=== PATIENT | male | born 1940 | race Caucasian/White ===

== ENCOUNTER → 2017-02-19 | Outpatient (CLI) | payer MEDICARE ==
[2017-02-19 08:30] LABS: Basophils % (A) 0 %; CH 31.4; CHCM 33.2; Eosinophils # (A) 0.1 k/uL (0-0.7); Eosinophils % (A) 2 %; HCT 49.7 % (39.0-53.0); HDW 2.14; HGB 16.3 gm/dL (13.0-17.5); Luc % (Auto) 1; Lymphocytes % (A) 13 %; MCH 31.2 pg (25.0-35.0); MCHC 32.8 g/dL (31.0-37.0); MCV 95.2 fL (80.0-100.0); Mean Platelet Volume 6.6; Monocytes # (A) 0.8 k/uL (0-1.0); Monocytes % (A) 10 %; Neutrophils # (A) 5.6 k/uL (1.3-7.7); Neutrophils % (A) 74 %; RBC 5.22 m/uL (4.30-5.90); RDW 12.9 % (11.5-15.5); WBC 7.5 k/uL (3.8-10.6); WBC (Perox) 7.74
[2017-02-19 09:27] LABS: ALT 26 U/L (21-72); AST 25 U/L (17-59); Alkaline Phosphatase 77 U/L (38-126); Anion Gap 9 mmol/L; Blood Urea Nitrogen 24 mg/dL (9-20); Calcium 8.9 mg/dL (8.4-10.2); Carbon Dioxide 28 mmol/L (22-30); Chloride 102 mmol/L (98-107); Cholesterol 147 mg/dL (<200); Glucose 80 mg/dL (74-99); Non-African American GFR(MDRD) 54 (>60 ml/min/1.73 sqM); Potassium 4.6 mmol/L (3.5-5.1); Sodium 139 mmol/L (137-145); Triglycerides 134 mg/dL (<150)
== END | disposition home or self-care (01) ==
LOC: LABWHC1 07:47
PROVIDERS: ATTEND Family Medicine
DX: G20 Parkinson's disease (principal); E55.9 Vitamin D deficiency, unspecified; R53.83 Other fatigue; R35.0 Frequency of micturition; Z13.220 Encounter for screening for lipoid disorders; Z12.5 Encounter for screening for malignant neoplasm of prostate; Z12.31 Encounter for screening mammogram for malignant neoplasm of breast
CPT/HCPCS: 80053; 82465; 84443; 84478; 85025; 82306; 36415; G0103

== ENCOUNTER → 2017-03-13 | Outpatient (CLI) | payer MEDICARE | END | disposition home or self-care (01) | LOC: LABWHC1 09:00 | PROVIDERS: ATTEND Psychiatry & Neurology Neurology | DX: R41.3 Other amnesia (principal); R53.83 Other fatigue | CPT/HCPCS: 36415; 82607; 85652; 86780 ==

== ENCOUNTER → 2017-03-17 | Outpatient (CLI) | payer MEDICARE ==
--- NOTE | 2017-03-17 10:10 | CT ---
EXAMINATION TYPE: CT brain wo con DATE OF EXAM: 03/17/2017 10:04 AM COMPARISON: NONE HISTORY: TIA, weakness, fatigue CT DLP: [address] of the brain was performed. The ventricles, basal cisterns and sulci overlying the cerebral convexities demonstrate moderate enla rgement. There is no evidence for intracranial hemorrhage or sulcal effacement. There is decreased attenuation about the periventricular white matter and deep white matter of both c erebral hemispheres, compatible with chronic small vessel ischemia. Differential diagnosis does inclu de demyelination. No mass effects are seen.No midline shift. Osseous calvarium is intact. If symptoms persist consider MRI. IMPRESSION: 1. Age related atrophic and chronic small vessel ischemic change without acute intracranial process s een at this time.
== END | disposition home or self-care (01) ==
LOC: RADCTMAIN 09:22
PROVIDERS: ATTEND Psychiatry & Neurology Neurology
DX: G31.9 Degenerative disease of nervous system, unspecified (principal); I67.82 Cerebral ischemia; Z88.0 Allergy status to penicillin
CPT/HCPCS: 70450

== ENCOUNTER 2017-03-28 13:05 | Inpatient (IN) | payer MEDICARE ==
[2017-03-28 13:34] LABS: Glucose,Whole Blood 153 mg/dL (75-99)
[2017-03-28] MEDS ORDERED: ACETAMINOPHEN TAB 500 MG TAB PO STA (13:35)
[2017-03-28] MEDS ORDERED: RX INFO: IV CONTRAST WAS GIVEN 1 EACH MISC MISCELLANE PRN (13:37)
--- NOTE | 2017-03-28 13:41 | ED ---
General Adult HPI - General Chief complaint: Neuro Symptoms/Deficit Stated complaint: Altered/Weakness Time Seen by Provider: 03/28/17 13:27 Source: patient, family, RN notes reviewed Mode of arrival: wheelchair Limitations: altered mental status, physical limitation - History of Present Illness Initial comments: Patient is a pleasant 76-year-old male presenting to the emergency department with concern for weakness. Majority of history is provided by the daughter. Patient had some mild weakness last night. This morning patient was unable to get out of bed. Patient did have a fall however no known injury. Patient does complain of some lower back pain however daughter states this is somewhat chronic. No history of fever. Daughter feels patient may be slightly more confused than normal. Patient is being evaluated for Parkinson's through primary care physician and neurologist. Patient last saw a neurologist this past week. Neurologist was made aware of back discomfort. - Related Data Home Medications Medication Instructions Recorded Confirmed Cholecalciferol [Vitamin D3] 1,000 unit PO DAILY 03/28/17 03/28/17 Cyanocobalamin [Vitamin B-12] 500 mcg PO DAILY 03/28/17 03/28/17 Rivaroxaban [Xarelto] 15 mg PO DAILY 03/28/17 03/28/17 Allergies Allergy/AdvReac Type Severity Reaction Status Date / Time Penicillins Allergy Rash/Hives Verified 03/28/17 14:22 Review of Systems ROS Statement: Those systems with pertinent positive or pertinent negative responses have been documented in the HPI. ROS Other: All systems not noted in ROS Statement are negative. Constitutional: Denies: fever Eyes: Denies: eye pain ENT: Denies: ear pain Respiratory: Denies: cough, dyspnea Cardiovascular: Denies: chest pain Endocrine: Reports: fatigue Gastrointestinal: Denies: abdominal pain Genitourinary: Denies: dysuria Musculoskeletal: Reports: back pain Skin: Denies: rash Neurological: Reports: weakness Past Medical History Past Medical History: Chest Pain / Angina, Pulmonary Embolus (PE) History of Any Multi-Drug Resistant Organisms: None Reported Past Surgical History: Pacemaker Past Psychological History: No Psychological Hx Reported Smoking Status: Former smoker Past Alcohol Use History: None Reported Past Drug Use History: None Reported General Exam Limitations: altered mental status, physical limitation General appearance: alert, in no apparent distress Head exam: Present: atraumatic Eye exam: Present: normal appearance, PERRL, EOMI ENT exam: Present: normal oropharynx Neck exam: Present: normal inspection Respiratory exam: Present: normal lung sounds bilaterally Cardiovascular Exam: Present: regular rate, normal rhythm GI/Abdominal exam: Present: soft. Absent: distended, tenderness Extremities exam: Present: normal inspection Back exam: Present: tenderness (Mild tenderness lower lumbar spine midline.) Neurological exam: Present: alert, altered, CN II-XII intact Expanded Patient oriented to: Present: person, time. Absent: place (Think he is at [facility]) Cranial nerves: EOM's Intact: Normal, Facial Sensation: Normal Sensory exam: Upper Extremity Light Touch: Normal, Lower Extremity Light Touch: Normal Motor strength exam: RUE: 4, LUE: 4, RLE: 2/1, LLE: 2/1 Eye Response: (4) open spontaneously Motor Response: (6) obeys commands Verbal Response: (4) confused conversation Psychiatric exam: Present: normal affect, normal mood Skin exam: Present: normal color, other (Skin near proximal and lower back is also within normal limits.). Absent: erythema Course Vital Signs 03/28/17 03/28/17 03/28/17 13:12 13:46 14:29 Temperature 101.9 F H Pulse Rate 103 H 98 94 Respiratory 20 18 18 Rate Blood Pressure 136/74 120/71 131/81 O2 Sat by Pulse 94 L 97 97 Oximetry 03/28/17 15:51 Temperature 99.9 F H Pulse Rate 83 Respiratory 15 Rate Blood Pressure 137/75 O2 Sat by Pulse 99 Oximetry EKG Findings - EKG Comments: EKG Findings:: Sinus tachycardia 104. NM 170. QRS 86. QT 332. QTC 436. Left axis. Normal QRS. Normal ST-T. Medical Decision Making - Medical Decision Making Patient reevaluated and resting comfortably in bed. Family updated on results and plan. Patient does meet sepsis criteria diagnosed at 3:55 PM. Case was discussed in detail with Dr. Oacsio, who will admit for Dr. Daly. He recommends Rocephin and Levaquin. Consult for Dr. Langston. - Lab Data Result diagrams: 03/28/17 13:45 03/28/17 13:45 Lab Results 03/28/17 03/28/17 03/28/17 Range/Units 13:30 13:45 13:45 WBC 18.7 H (3.8-10.6) k/uL RBC 4.93 (4.30-5.90) m/uL Hgb 15.1 (13.0-17.5) gm/dL Hct 45.6 (39.0-53.0) % MCV 92.6 (80.0-100.0) fL MCH 30.7 (25.0-35.0) pg MCHC 33.1 (31.0-37.0) g/dL RDW 12.6 (11.5-15.5) % Plt Count 225 (150-450) k/uL Neutrophils % 87 % Lymphocytes % 5 % Monocytes % 6 % Eosinophils % 1 % Basophils % 0 % Neutrophils # 16.3 H (1.3-7.7) k/uL Lymphocytes # 0.9 L (1.0-4.8) k/uL Monocytes # 1.1 H (0-1.0) k/uL Eosinophils # 0.3 (0-0.7) k/uL Basophils # 0.1 (0-0.2) k/uL PT (9.0-12.0) sec INR (<1.1) APTT (22.0-30.0) sec Sodium (137-145) mmol/L Potassium (3.5-5.1) mmol/L Chloride (98-107) mmol/L Carbon Dioxide (22-30) mmol/L Anion Gap mmol/L BUN (9-20) mg/dL Creatinine (0.66-1.25) mg/dL Est GFR (MDRD) Af Amer (>60 ml/min/1.73 sqM) Est GFR (MDRD) Non-Af (>60 ml/min/1.73 sqM) Glucose (74-99) mg/dL POC Glucose (mg/dL) 153 H (75-99) mg/dL POC Glu [place] Therapist ID Larry, Ani Plasma Lactic Acid Otoniel (0.7-2.0) mmol/L Calcium (8.4-10.2) mg/dL Total Bilirubin (0.2-1.3) mg/dL AST (17-59) U/L ALT (21-72) U/L Alkaline Phosphatase (38-126) U/L Total Creatine Kinase 576 H (55-170) U/L CK-MB (CK-2) 4.9 H* (0.0-2.4) ng/mL CK-MB (CK-2) Rel Index 0.9 Troponin I <0.012 (0.000-0.034) ng/mL Total Protein (6.3-8.2) g/dL Albumin (3.5-5.0) g/dL Urine Color Urine Appearance (Clear) Urine pH (5.0-8.0) Ur Specific [place] (1.001-1.035) Urine Protein (Negative) Urine Glucose (UA) (Negative) Urine Ketones (Negative) Urine Blood (Negative) Urine Nitrite (Negative) Urine Bilirubin (Negative) Urine Urobilinogen (<2.0) mg/dL Ur Leukocyte Esterase (Negative) Urine RBC (0-5) /hpf Urine WBC (0-5) /hpf Ur Squamous Epith Cells (0-4) /hpf Urine Bacteria (None) /hpf Hyaline Casts (0-2) /lpf Urine Mucus (None) /hpf 03/28/17 03/28/17 03/28/17 Range/Units 13:45 13:45 13:45 WBC (3.8-10.6) k/uL RBC (4.30-5.90) m/uL Hgb (13.0-17.5) gm/dL Hct (39.0-53.0) % MCV (80.0-100.0) fL MCH (25.0-35.0) pg MCHC (31.0-37.0) g/dL RDW (11.5-15.5) % Plt Count (150-450) k/uL Neutrophils % % Lymphocytes % % Monocytes % % Eosinophils % % Basophils % % Neutrophils # (1.3-7.7) k/uL Lymphocytes # (1.0-4.8) k/uL Monocytes # (0-1.0) k/uL Eosinophils # (0-0.7) k/uL Basophils # (0-0.2) k/uL PT 14.3 H (9.0-12.0) sec INR 1.5 (<1.1) APTT 32.0 H (22.0-30.0) sec Sodium 138 (137-145) mmol/L Potassium 3.9 (3.5-5.1) mmol/L Chloride 103 (98-107) mmol/L Carbon Dioxide 23 (22-30) mmol/L Anion Gap 12 mmol/L BUN 27 H (9-20) mg/dL Creatinine 1.18 (0.66-1.25) mg/dL Est GFR (MDRD) Af Amer >60 (>60 ml/min/1.73 sqM) Est GFR (MDRD) Non-Af 60 (>60 ml/min/1.73 sqM) Glucose 141 H (74-99) mg/dL POC Glucose (mg/dL) (75-99) mg/dL POC Glu [place] Therapist ID Plasma Lactic Acid Otoniel 2.2 H* (0.7-2.0) mmol/L Calcium 8.7 (8.4-10.2) mg/dL Total Bilirubin 1.5 H (0.2-1.3) mg/dL AST 30 (17-59) U/L ALT 22 (21-72) U/L Alkaline Phosphatase 69 (38-126) U/L Total Creatine Kinase (55-170) U/L CK-MB (CK-2) (0.0-2.4) ng/mL CK-MB (CK-2) Rel Index Troponin I (0.000-0.034) ng/mL Total Protein 6.8 (6.3-8.2) g/dL Albumin 3.9 (3.5-5.0) g/dL Urine Color Urine Appearance (Clear) Urine pH (5.0-8.0) Ur Specific [place] (1.001-1.035) Urine Protein (Negative) Urine Glucose (UA) (Negative) Urine Ketones (Negative) Urine Blood (Negative) Urine Nitrite (Negative) Urine Bilirubin (Negative) Urine Urobilinogen (<2.0) mg/dL Ur Leukocyte Esterase (Negative) Urine RBC (0-5) /hpf Urine WBC (0-5) /hpf Ur Squamous Epith Cells (0-4) /hpf Urine Bacteria (None) /hpf Hyaline Casts (0-2) /lpf Urine Mucus (None) /hpf 03/28/17 Range/Units 15:07 WBC (3.8-10.6) k/uL RBC (4.30-5.90) m/uL Hgb (13.0-17.5) gm/dL Hct (39.0-53.0) % MCV (80.0-100.0) fL MCH (25.0-35.0) pg MCHC (31.0-37.0) g/dL RDW (11.5-15.5) % Plt Count (150-450) k/uL Neutrophils % % Lymphocytes % % Monocytes % % Eosinophils % % Basophils % % Neutrophils # (1.3-7.7) k/uL Lymphocytes # (1.0-4.8) k/uL Monocytes # (0-1.0) k/uL Eosinophils # (0-0.7) k/uL Basophils # (0-0.2) k/uL PT (9.0-12.0) sec INR (<1.1) APTT (22.0-30.0) sec Sodium (137-145) mmol/L Potassium (3.5-5.1) mmol/L Chloride (98-107) mmol/L Carbon Dioxide (22-30) mmol/L Anion Gap mmol/L BUN (9-20) mg/dL Creatinine (0.66-1.25) mg/dL Est GFR (MDRD) Af Amer (>60 ml/min/1.73 sqM) Est GFR (MDRD) Non-Af (>60 ml/min/1.73 sqM) Glucose (74-99) mg/dL POC Glucose (mg/dL) (75-99) mg/dL POC Glu [place] Therapist ID Plasma Lactic Acid Otoniel (0.7-2.0) mmol/L Calcium (8.4-10.2) mg/dL Total Bilirubin (0.2-1.3) mg/dL AST (17-59) U/L ALT (21-72) U/L Alkaline Phosphatase (38-126) U/L Total Creatine Kinase (55-170) U/L CK-MB (CK-2) (0.0-2.4) ng/mL CK-MB (CK-2) Rel Index Troponin I (0.000-0.034) ng/mL Total Protein (6.3-8.2) g/dL Albumin (3.5-5.0) g/dL Urine Color Yellow Urine Appearance Cloudy (Clear) Urine pH 6.0 (5.0-8.0) Ur Specific [place] 1.044 H (1.001-1.035) Urine Protein 1+ H (Negative) Urine Glucose (UA) Negative (Negative) Urine Ketones Negative (Negative) Urine Blood Small H (Negative) Urine Nitrite Positive (Negative) Urine Bilirubin Negative (Negative) Urine Urobilinogen <2.0 (<2.0) mg/dL Ur Leukocyte Esterase Large H (Negative) Urine RBC 7 H (0-5) /hpf Urine WBC 107 H (0-5) /hpf Ur Squamous Epith Cells 1 (0-4) /hpf Urine Bacteria Many H (None) /hpf Hyaline Casts 1 (0-2) /lpf Urine Mucus Moderate H (None) /hpf - Radiology Data Radiology results: report reviewed (Computed tomography scan of the brain shows no acute abnormality. Computed tomography scan of the lumbar spine shows multiple degenerative changes without paraspinal mass.), image reviewed (Chest x -ray shows no acute process.) Critical Care Time Critical Care Time: Yes Total Critical Care Time: 34 Disposition Clinical Impression: Severe sepsis, Urinary tract infection Disposition: ADMITTED IP TO THIS HOSP Referrals: Tre Daly MD [Primary Care Provider] - 1-2 days Time of Disposition: 16:01
[2017-03-28 13:54] LABS: Basophils # (A) 0.1 k/uL (0-0.2); Basophils % (A) 0 %; CH 31.2; CHCM 33.8; Eosinophils # (A) 0.3 k/uL (0-0.7); Eosinophils % (A) 1 %; HCT 45.6 % (39.0-53.0); HDW 2.17; HGB 15.1 gm/dL (13.0-17.5); Luc # (Auto) 0.11; Luc % (Auto) 1; Lymphocytes # (A) 0.9 k/uL (1.0-4.8); Lymphocytes % (A) 5 %; MCH 30.7 pg (25.0-35.0); MCHC 33.1 g/dL (31.0-37.0); MCV 92.6 fL (80.0-100.0); Monocytes # (A) 1.1 k/uL (0-1.0); Monocytes % (A) 6 %; Neutrophils # (A) 16.3 k/uL (1.3-7.7); Neutrophils % (A) 87 %; RBC 4.93 m/uL (4.30-5.90); RDW 12.6 % (11.5-15.5); WBC 18.7 k/uL (3.8-10.6)
[2017-03-28] MEDS: SODIUM CHLORIDE 0.9% 500 ML IV SCH (14:00)
[2017-03-28 14:08] LABS: INR 1.5 (<1.1); Prothrombin Time 14.3 sec (9.0-12.0)
[2017-03-28 14:16] LABS: Creatine Kinase 576 U/L (55-170)
[2017-03-28 14:18] LABS: ALT 22 U/L (21-72); AST 30 U/L (17-59); Alkaline Phosphatase 69 U/L (38-126); Anion Gap 12 mmol/L; Blood Urea Nitrogen 27 mg/dL (9-20); Calcium 8.7 mg/dL (8.4-10.2); Carbon Dioxide 23 mmol/L (22-30); Chloride 103 mmol/L (98-107); Glucose 141 mg/dL (74-99); Non-African American GFR(MDRD) 60 (>60 ml/min/1.73 sqM); Potassium 3.9 mmol/L (3.5-5.1); Sodium 138 mmol/L (137-145); Total Bilirubin 1.5 mg/dL (0.2-1.3); Total Protein 6.8 g/dL (6.3-8.2)
[2017-03-28 14:29] LABS: Troponin I <0.012 ng/mL (0.000-0.034)
[2017-03-28 14:42] LABS: Creatine Kinase MB 4.9 ng/mL (0.0-2.4)
--- NOTE | 2017-03-28 15:19 | CT ---
EXAMINATION TYPE: CT brain wo con DATE OF EXAM: 03/28/2017 COMPARISON: Prior exam 17 Mar 2017 HISTORY: Lt side weakness and lethargic CT DLP: 1090.4 mGycm Automated exposure control for dose reduction was used. FINDINGS: There is no acute intracranial hemorrhage, mass effect, or midline shift identified. The ventricles and sulci are stable. The globes are intact and the visualized sinuses are clear. White matter demye lination change, cortical atrophy, skin calcification is stable. There are cerebral vascular calcific ations. Low-attenuation along the falx to the left midline is also unchanged. IMPRESSION: No acute intracranial hemorrhage, mass effect, or midline shift is seen.
--- NOTE | 2017-03-28 15:23 | CT ---
EXAMINATION TYPE: CT lumbar spine w con DATE OF EXAM: 03/28/2017 COMPARISON: NONE HISTORY: fever and low back pain CT DLP: 1073.1 mGycm Automated exposure control for dose reduction was used. CONTRAST: CT scan of the lumbar is performed with IV Contrast, patient injected with 100 mL of Omnipaque [address] of the lumbar spine was performed. Bone and soft tissue window settings are submitted as well as coronal and sagittal reconstructions. FINDINGS: There is multilevel spondylosis. Loss of disc height is present at the intervertebral levels with mul tilevel vacuum phenomenon, lumbar vertebral bodies show preserved height and alignment, bone minerali zation slightly reduced. Posterior extension of endplate disc complex at T12-L1 causes mild anterior mass effect on the thecal sac. No significant foraminal encroachment. There is no abnormal enhancemen t following contrast administration. L1-L2: Circumferential extension of endplate disc complex causes some mild bilateral foraminal encroa chment, only minimal anterior mass effect on the thecal sac L2-L3: There is facet arthropathy with hypertrophy ligamentum flavum encroaching on the lateral reces ses, circumferential extension of endplate disc complex results in bilateral foraminal encroachment. Posterior extension of endplate disc complex results in moderate central canal stenosis. L3-L4: Circumferential posterior extension of endplate disc complex causes anterior mass effect on th e thecal sac and encroaches somewhat on the neural foramina. There is some facet arthropathy. L4-L5: Circumferential extension of endplate disc complex causes some anterior mass effect on the the colin sac, there is facet arthropathy with hypertrophy of the ligamentum flavum resulting in moderate t o severe central canal stenosis. There is bilateral foraminal encroachment. L5-S1: Posterior extension of endplate disc complex causes mass effect likely on the proximal S1 nerv e roots, circumferential extension of endplate disc complex causes foraminal encroachment, there is m otion at this level. IMPRESSION: No paraspinal masses are identified. Lumbar segments are intact. Degenerative disc disease, multilev el foraminal encroachment, spinal stenosis, and facet arthropathy.
[2017-03-28 15:28] LABS: Appearance,Urine Cloudy (Clear); Bacteria,Urine Many /hpf; Bilirubin,Urine Negative (Negative); Glucose,Urine (UA) Negative (Negative); Ketones,Urine Negative (Negative); Leukocyte Esterase,Urine Large (Negative); Mucus,Urine Moderate /hpf; Nitrite,Urine Positive (Negative); Particle Count 81510; Protein,Urine 1+ (Negative); RBC,Urine 7 /hpf (0-5); Specific Gravity,Urine 1.044 (1.001-1.035); Squamous Epithelial Cell,Urine 1 /hpf (0-4); UA Billing (MACRO vs. MICRO) MICRO; Urobilinogen,Urine <2.0 mg/dL (<2.0); WBC,Urine 107 /hpf (0-5)
--- NOTE | 2017-03-28 15:46 | XR ---
EXAMINATION TYPE: XR chest 2V DATE OF EXAM: 03/28/2017 COMPARISON: NONE HISTORY: Shortness of breath and effusion TECHNIQUE: Frontal and lateral views of the chest are obtained. FINDINGS: Patient is rotated. Pacemaker is present with leads in the right atrium and ventricle. Rig ht hemidiaphragm is elevated. No pneumonia, pneumothorax, or pleural effusion. Cardiac mediastinal si lhouette shows probable enlargement of the heart, pulmonary vascularity and mally within normal limits . IMPRESSION: There may be some cardiomegaly. Elevated right hemidiaphragm. Rotated exam, follow-up as indicated.
[2017-03-28] MEDS ORDERED: NALOXONE 0.4 MG/ML 1 ML VIAL IV PRN (16:03)
[2017-03-28] MEDS: SODIUM CHLORIDE 0.9% 1,000 ML IV SCH (16:25)
[2017-03-28] MEDS: LEVOFLOXACIN 750MG-D5W PMX 750 MG in DEXTROSE/WATER 1 150ML.BAG IVPB SCH (18:06)
--- NOTE | 2017-03-28 18:36 | P.HPIM ---
History of Present Illness H&P Date: 03/28/17 Chief Complaint: Generalized weakness and pain 76-year-old male patient who is normally seen by Dr. Daly on an outpatient basis presented to [facility] with the above chief complaint. His daughter Kerry is at the bedside and is able to provide very detailed history. She states that the night of 03/27 her father had rolled out of bed while she was at work and this was reported by the family hours caring for him. He was able to get back to bed and did not appear to be injured at the time but began complaining of pain today. Patient presented to the emergency department for evaluation. Patient's daughter states that he has had some ongoing weakness some tremor and other neurologic issues that are being up worked up by Dr. Dial extensively as an outpatient. He has had EMGs and other studies done. He is due for more studies upcoming in the near future. His daughter states that his symptoms today were different though. He was much weaker than usual in a global fashion. Patient was seen and evaluated in the emergency room. Patient had extensive studies to determine if any fractures were present. None appear to be on initial evaluation of the films. However patient was found to have a urinary tract infection with signs of septic cysts including an elevated lactate. Patient was given fluid boluses in the emergency department started on antibiotics. He is slightly confused and slow in mentation at the time of exam but is able to answer many questions appropriately. He is sitting up and slowly eating his dinner that his daughter brought for him. He states he has had some left flank pain. There is no reported fever or chills that was noted at home however temperature was 101.9 F in the emergency department upon arrival. Review of Systems General:Noted fever of 101.9 upon admission. No chills. No nausea or emesis. HEENT: Is blind in the left eye. Was scheduled to have cataract surgery on the right eye. No eye pain. No nasal symptoms. No dysphagia.No odynophagia. No ENT pain. Cardiac: No chest pain. No palpitations. Pulmonary: No dyspnea. GI: No abdominal pain. No diarrhea. No constipation. No bowel habit changes. No melena. No hematochezia. See general. : No dysuria.No hematuria. No hesitancy. No urgency.Some left flank pain. Musculoskeletal: No musculoskeletal pain. Orthopedic: Denies fracture history. Integumentary: Denies rash. Denies pruritis. Neurologic: Denies any lateralizing weakness. Denies numbness. Denies tingling. No seizure activity. Denies TIA or CVA. Has generalized weakness and tremor. Being worked up for these items by Dr. Dial of neurology on an outpaitent basis. Has had EMG and nerve conduction studies. More testing scheduled. Endocrine: No diabetes mellitus or thyroid disorders. Heme/Onc: Denies anemia. Denies cancer. Denies adenopathy. 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 scheduled for removal History of Any Multi-Drug Resistant Organisms: None Reported Past Surgical History: Pacemaker Past Anesthesia/Blood Transfusion Reactions: No Reported Reaction Type of Cardiac Device: Permanent Pacemaker Device Placement Date:: unk Past Psychological History: No Psychological Hx Reported Smoking Status: Former smoker Past Alcohol Use History: None Reported Past Drug Use History: None Reported Additional History: Patient lives with his daughter - Past Family History Mother Family Medical History: Dementia Father Family Medical History: Dementia Medications and Allergies Home Medications Medication Instructions Recorded Confirmed Type Cholecalciferol [Vitamin D3] 1,000 unit PO DAILY 03/28/17 03/28/17 History Cyanocobalamin [Vitamin B-12] 500 mcg PO DAILY 03/28/17 03/28/17 History Rivaroxaban [Xarelto] 15 mg PO DAILY 03/28/17 03/28/17 History Allergies Allergy/AdvReac Type Severity Reaction Status Date / Time Penicillins Allergy Rash/Hives Verified 03/28/17 14:22 Physical Exam Osteopathic Statement: *. No significant issues noted on an osteopathic structural exam other than those noted in the History and Physical/Consult. Vitals: Vital Signs Temp Pulse Pulse Resp BP BP Pulse Ox 03/28/17 17:33 99.3 F 71 18 130/71 97 03/28/17 16:26 99.0 F 81 18 127/75 97 03/28/17 15:51 99.9 F H 83 15 137/75 99 03/28/17 14:29 94 18 131/81 97 03/28/17 13:46 98 18 120/71 97 03/28/17 13:12 101.9 F H 103 H 20 136/74 94 L Intake and Output 03/28/17 03/28/17 03/28/17 06:59 14:59 22:59 Other: Weight 92.079 kg Patient Weight 03/29/17 06:59 Weight 92.079 kg General: Patient awake alert and oriented to city, place, not month (believes is December), is oriented to year. No acute distress. HEENT: Sclerae are clear. Pupils equal, round and reactive to light bilaterally. No cervical adenopathy. No pharyngeal erythema or exudate. No thyromegaly. Lymphatic: No anterior cervical adenopathy. Chest: Heart regular in rate and rhythm positive S1 and S2. No S3. No S4. No clicks, rubs or murmurs. Lungs: Clear to auscultation bilaterally. No wheezes rales or rhonchi. Respirations even and nonlabored. Abdomen/GI: Bowel sounds present in all 4 quadrants. Bowel sounds normoactive. No abdominal tenderness. No mass. No hepatomegaly or splenomegaly. No bruits. Flank: Reports left flank tenderness with this episode but none noted with percussion of flank. Musculoskeletal/ Extremities: No tenderness on muscular exam. No ecchymosis. Vascular: Radial pulses equal. 2/4 radial pulses. +1 ankle edema. Feet warm. Skin: No rash noted. Neurologic: Awake, alert and oriented times 2. EOMI. 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 Is able to gaze superiorly with left eye. No facial droop. Mold Clamper strength bilaterally biceps triceps quadriceps hamstrings and EHL with weakness throughout but present with gravity and some resistance. Patient is able to hold his fork and feed himself. No evidence of coughing or choking with eating. Patient somewhat slow to respond to questions but is able to do so. Does not appear to follow understanding of why he came to the hospital and patient is reoriented. Patient does have some mild tremor which seems slightly worse with intention in bilateral upper extremities. Patient is able to sit upright on the side of the bed Psychiatric: Patient with very flat affect but given current sepsis state do feel he would provide an accurate psychiatric history at this time. Results CBC & Chem 7: 03/28/17 13:45 03/28/17 13:45 Labs: Abnormal Lab Results - Last 24 Hours (Table) 03/28/17 03/28/17 03/28/17 Range/Units 13:30 13:45 13:45 WBC 18.7 H (3.8-10.6) k/uL Neutrophils # 16.3 H (1.3-7.7) k/uL Lymphocytes # 0.9 L (1.0-4.8) k/uL Monocytes # 1.1 H (0-1.0) k/uL PT (9.0-12.0) sec APTT (22.0-30.0) sec BUN (9-20) mg/dL Glucose (74-99) mg/dL POC Glucose (mg/dL) 153 H (75-99) mg/dL Plasma Lactic Acid Otoniel (0.7-2.0) mmol/L Total Bilirubin (0.2-1.3) mg/dL Total Creatine Kinase 576 H (55-170) U/L CK-MB (CK-2) 4.9 H* (0.0-2.4) ng/mL Ur Specific [place] (1.001-1.035) Urine Protein (Negative) Urine Blood (Negative) Ur Leukocyte Esterase (Negative) Urine RBC (0-5) /hpf Urine WBC (0-5) /hpf Urine Bacteria (None) /hpf Urine Mucus (None) /hpf 03/28/17 03/28/17 03/28/17 Range/Units 13:45 13:45 13:45 WBC (3.8-10.6) k/uL Neutrophils # (1.3-7.7) k/uL Lymphocytes # (1.0-4.8) k/uL Monocytes # (0-1.0) k/uL PT 14.3 H (9.0-12.0) sec APTT 32.0 H (22.0-30.0) sec BUN 27 H (9-20) mg/dL Glucose 141 H (74-99) mg/dL POC Glucose (mg/dL) (75-99) mg/dL Plasma Lactic Acid Otoniel 2.2 H* (0.7-2.0) mmol/L Total Bilirubin 1.5 H (0.2-1.3) mg/dL Total Creatine Kinase (55-170) U/L CK-MB (CK-2) (0.0-2.4) ng/mL Ur Specific [place] (1.001-1.035) Urine Protein (Negative) Urine Blood (Negative) Ur Leukocyte Esterase (Negative) Urine RBC (0-5) /hpf Urine WBC (0-5) /hpf Urine Bacteria (None) /hpf Urine Mucus (None) /hpf 03/28/17 Range/Units 15:07 WBC (3.8-10.6) k/uL Neutrophils # (1.3-7.7) k/uL Lymphocytes # (1.0-4.8) k/uL Monocytes # (0-1.0) k/uL PT (9.0-12.0) sec APTT (22.0-30.0) sec BUN (9-20) mg/dL Glucose (74-99) mg/dL POC Glucose (mg/dL) (75-99) mg/dL Plasma Lactic Acid Otoniel (0.7-2.0) mmol/L Total Bilirubin (0.2-1.3) mg/dL Total Creatine Kinase (55-170) U/L CK-MB (CK-2) (0.0-2.4) ng/mL Ur Specific [place] 1.044 H (1.001-1.035) Urine Protein 1+ H (Negative) Urine Blood Small H (Negative) Ur Leukocyte Esterase Large H (Negative) Urine RBC 7 H (0-5) /hpf Urine WBC 107 H (0-5) /hpf Urine Bacteria Many H (None) /hpf Urine Mucus Moderate H (None) /hpf Thrombosis Risk Factor Assmnt - DVT/VTE Prophylaxis DVT/VTE Prophylaxis: Pharmacologic Prophylaxis ordered, Mechanical Prophylaxis ordered - Choose All That Apply Each Risk Factor Represents 3 Points: Age 75 years or older, History of DVT/PE Thrombosis Risk Factor Assessment Total Risk Factor Score: 6 Thrombosis Risk Factor Assessment Level: High Risk Assessment and Plan Plan: Assessment: 1. Sepsis secondary to UTI 2. Status post rollout of bed with fall without any apparent fracture 3. Confusional state likely secondary to #1 versus secondary to underlying neurologic disorder is being worked up 4. Tremor, undergoing evaluation with neurology for etiology of same on an outpatient basis 5. Status post pacemaker by history 6. History of bilateral pulmonary emboli. 7. Daughter reports undergoing workup on an outpatient basis including a 24- hour urine Plan: 1. Patient did receive fluid resuscitation for sepsis in the emergency department 2. Continue Levaquin and ceftriaxone pending cultures 3. Cultures were drawn in the emergency department with results 4. Spoke with daughter at bedside regarding recurrent condition and plan for care. Patient's daughter states that she does have medical power of corporate attorney and states that she is provided these documents to the nursing staff. She states in prior discussions with her father he would want to be a FULL CODE so that his wishes are noted in the chart. 5. Continue Xarelto. 6. SCDs. 7. PT evaluation 8. OT evaluation 9. Start with KUB for evaluation of flank pain to determine if obvious renal lithiasis or obstruction.
[2017-03-28] MEDS: ACETAMINOPHEN TAB 325 MG TAB PO PRN (20:59)
[2017-03-29] MEDS: SODIUM CHLORIDE 0.9% 1,000 ML IV SCH ×3 (01:03→16:00)
[2017-03-29 08:23] LABS: Basophils % (A) 0 %; CHCM 32.6; Eosinophils # (A) 0.3 k/uL (0-0.7); Eosinophils % (A) 2 %; HCT 41.5 % (39.0-53.0); HDW 2.19; HGB 13.6 gm/dL (13.0-17.5); Luc # (Auto) 0.14; Luc % (Auto) 1; Lymphocytes # (A) 1.2 k/uL (1.0-4.8); Lymphocytes % (A) 9 %; MCH 31.4 pg (25.0-35.0); MCHC 32.8 g/dL (31.0-37.0); MCV 95.6 fL (80.0-100.0); Mean Platelet Volume 7.2; Monocytes # (A) 0.9 k/uL (0-1.0); Monocytes % (A) 7 %; Neutrophils # (A) 11.1 k/uL (1.3-7.7); Neutrophils % (A) 81 %; RBC 4.34 m/uL (4.30-5.90); RDW 12.9 % (11.5-15.5); WBC 13.7 k/uL (3.8-10.6); WBC (Perox) 14.16
--- NOTE | 2017-03-29 08:23 | XR ---
Abdomen HISTORY: Left flank pain Frontal view of the abdomen on 2 images No comparisons Right hemidiaphragm is elevated. Patchy density present at the right lung base. Pacemaker leads are p resent in the right atrium and ventricle. Degenerative disc changes in the visualized spine. There ar e vascular calcifications present. No bowel obstruction or pneumoperitoneum. IMPRESSION: Nonobstructive bowel gas pattern.
[2017-03-29 08:43] LABS: Anion Gap 9 mmol/L; Blood Urea Nitrogen 23 mg/dL (9-20); Calcium 8.2 mg/dL (8.4-10.2); Carbon Dioxide 21 mmol/L (22-30); Chloride 108 mmol/L (98-107); Glucose 93 mg/dL (74-99); Magnesium 1.8 mg/dL (1.6-2.3); Non-African American GFR(MDRD) >60 (>60 ml/min/1.73 sqM); Sodium 138 mmol/L (137-145)
[2017-03-29] MEDS: ACETAMINOPHEN TAB 325 MG TAB PO PRN ×2 (08:50→20:14)
[2017-03-29] MEDS: RIVAROXABAN 15 MG TAB PO SCH (08:51)
[2017-03-29] MEDS: CYANOCOBALAMIN 500 MCG TAB PO SCH (09:07)
[2017-03-29] MEDS: CHOLECALCIFEROL 1,000 UNIT TAB PO SCH (09:07)
[2017-03-29] MEDS: LEVOFLOXACIN 750MG-D5W PMX 750 MG in DEXTROSE/WATER 1 150ML.BAG IVPB SCH (17:07)
--- NOTE | 2017-03-29 19:46 | P.PN ---
Subjective Principal diagnosis: Generalized weakness and pain Patient seen and examined along with INSURANCE SALES PRODUCER this afternoon. Patient states feeling much better today. He states that he does remember significant conversing with me yesterday but indicates that he was also aware that he was somewhat confused. States feeling much better today. Still weak but little bit improved compared to yesterday. Is able to eat. He is not able to stand or ambulate on his own. Family not in the room at time of my examination. RN reports that daughter is concerned about rash over the abdominal folds and thighs. This area is evaluated. Please see physical exam. Patient denies any pain at the time of exam but indicates he eats that he does still intermittently have left flank pain which he has had intermittently over the last few weeks. Objective - Vital Signs Vital signs: Vital Signs Temp 99.1 F 03/29/17 07:00 Pulse 79 03/29/17 07:00 Resp 18 03/29/17 07:00 BP 122/66 03/29/17 07:00 Pulse Ox 97 03/29/17 07:00 Intake & Output 03/28/17 03/29/17 03/29/17 18:59 06:59 18:59 Intake Total 240 Balance 240 Weight 92.079 kg Intake: Oral 240 Other: # Voids 3 - Exam General: Patient awake alert and oriented x 3. No acute distress. Still fatigued. HEENT: Sclerae are clear. Opacity left lens. No cervical adenopathy. No pharyngeal erythema or exudate. No thyromegaly. Lymphatic: No anterior cervical adenopathy. Chest: Heart regular in rate and rhythm positive S1 and S2. No S3. No S4. No clicks, rubs or murmurs. Lungs: Clear to auscultation bilaterally. No wheezes rales or rhonchi. Respirations even and nonlabored. Abdomen/GI: Bowel sounds present in all 4 quadrants. Bowel sounds normoactive. No abdominal tenderness. No mass. No hepatomegaly or splenomegaly. No bruits. No flank tenderness at the time of exam. Musculoskeletal/ Extremities: No tenderness on muscular exam. No ecchymosis. Vascular: Radial pulses equal. 2/4. Lower extremities and feet warm. Skin: Patient has petechial rash scattered over the entire lower portion of his abdominal fold also in the areas of his medial thighs. Rash fairly dense in these areas. And a few scattered petechiae over the distal medial thigh and a few scattered medially over the tibial area Neurologic: Awake, alert and oriented times 3. No lateralizing deficits noted on gross inspection. Tremor much less prominent today. Is able to be assisted to a sitting position in the bed to eat his lunch with 2 person assist. Psychiatric: Better eye contact today. Answers questions appropriately. - Labs CBC & Chem 7: 03/29/17 07:47 03/29/17 07:47 Labs: Abnormal Lab Results - Last 24 Hours (Table) 03/28/17 03/28/17 03/28/17 Range/Units 13:30 13:45 13:45 WBC 18.7 H (3.8-10.6) k/uL Neutrophils # 16.3 H (1.3-7.7) k/uL Lymphocytes # 0.9 L (1.0-4.8) k/uL Monocytes # 1.1 H (0-1.0) k/uL PT (9.0-12.0) sec APTT (22.0-30.0) sec Chloride (98-107) mmol/L Carbon Dioxide (22-30) mmol/L BUN (9-20) mg/dL Glucose (74-99) mg/dL POC Glucose (mg/dL) 153 H (75-99) mg/dL Plasma Lactic Acid Otoniel (0.7-2.0) mmol/L Calcium (8.4-10.2) mg/dL Total Bilirubin (0.2-1.3) mg/dL Total Creatine Kinase 576 H (55-170) U/L CK-MB (CK-2) 4.9 H* (0.0-2.4) ng/mL Ur Specific [place] (1.001-1.035) Urine Protein (Negative) Urine Blood (Negative) Ur Leukocyte Esterase (Negative) Urine RBC (0-5) /hpf Urine WBC (0-5) /hpf Urine Bacteria (None) /hpf Urine Mucus (None) /hpf 03/28/17 03/28/17 03/28/17 Range/Units 13:45 13:45 13:45 WBC (3.8-10.6) k/uL Neutrophils # (1.3-7.7) k/uL Lymphocytes # (1.0-4.8) k/uL Monocytes # (0-1.0) k/uL PT 14.3 H (9.0-12.0) sec APTT 32.0 H (22.0-30.0) sec Chloride (98-107) mmol/L Carbon Dioxide (22-30) mmol/L BUN 27 H (9-20) mg/dL Glucose 141 H (74-99) mg/dL POC Glucose (mg/dL) (75-99) mg/dL Plasma Lactic Acid Otoniel 2.2 H* (0.7-2.0) mmol/L Calcium (8.4-10.2) mg/dL Total Bilirubin 1.5 H (0.2-1.3) mg/dL Total Creatine Kinase (55-170) U/L CK-MB (CK-2) (0.0-2.4) ng/mL Ur Specific [place] (1.001-1.035) Urine Protein (Negative) Urine Blood (Negative) Ur Leukocyte Esterase (Negative) Urine RBC (0-5) /hpf Urine WBC (0-5) /hpf Urine Bacteria (None) /hpf Urine Mucus (None) /hpf 03/28/17 03/29/17 03/29/17 Range/Units 15:07 07:47 07:47 WBC 13.7 H (3.8-10.6) k/uL Neutrophils # 11.1 H (1.3-7.7) k/uL Lymphocytes # (1.0-4.8) k/uL Monocytes # (0-1.0) k/uL PT (9.0-12.0) sec APTT (22.0-30.0) sec Chloride 108 H (98-107) mmol/L Carbon Dioxide 21 L (22-30) mmol/L BUN 23 H (9-20) mg/dL Glucose (74-99) mg/dL POC Glucose (mg/dL) (75-99) mg/dL Plasma Lactic Acid Otoniel (0.7-2.0) mmol/L Calcium 8.2 L (8.4-10.2) mg/dL Total Bilirubin (0.2-1.3) mg/dL Total Creatine Kinase (55-170) U/L CK-MB (CK-2) (0.0-2.4) ng/mL Ur Specific [place] 1.044 H (1.001-1.035) Urine Protein 1+ H (Negative) Urine Blood Small H (Negative) Ur Leukocyte Esterase Large H (Negative) Urine RBC 7 H (0-5) /hpf Urine WBC 107 H (0-5) /hpf Urine Bacteria Many H (None) /hpf Urine Mucus Moderate H (None) /hpf Microbiology - Last 24 Hours (Table) 03/28/17 15:07 Urine Culture - Preliminary Urine,Voided Assessment and Plan Plan: Assessment: 1. UTI with Sepsis 2. Status post rollout of bed with fall without any apparent fracture 3. Confusional state likely secondary to #1 improving on antibiotic therapy 4. Tremor, undergoing evaluation with neurology for etiology of same on an outpatient basis 5. Status post pacemaker by history 6. History of bilateral pulmonary emboli on Xarelto . Per RN, family indicates that INR was difficult to control and thus patient was placed on Xarelto. 7. Daughter reports undergoing workup on an outpatient basis including a 24- hour urine 8. Petechiae of abdominal folds and medial thigh , a few scattered medial calf. Etiology medication induced (not listed in my sources for Xarelto but possible) vs. vasculitis. 9. Leukocytosis secondary to #1 improved. 10. Mild hypocalcemia by lab, not present on admission, likely dilutional. Plan: 1. Patient did receive fluid resuscitation for sepsis in the emergency department 2. Continue Levaquin and ceftriaxone pending cultures 3. Cultures were drawn in the emergency department with results pending 4. Continue Xarelto. 5. SCDs. 6. PT evaluation 7. OT evaluation 9. Ordered ultrasound of the kidneys and bladder as patient complains of intermittent flank pain and wish to evaluate for renal obstruction, renal lithiasis. 10. Monitor petechial lesions of abdominal folds and medial thigh. Outpatient workup for vasculitis would be appropriate and consideration of alternative agents by prescriber of Xarelto. 11. Outpatient depression screening recommended as many life stressors and concerns with current medical conditions. 12. PO calcium replacement ordered. 13. Change fluids to LR at lower rate now with clinical improvement and cardiac history. 14. Await urine culture, no growth thus far.
[2017-03-29] MEDS: LACTATED RINGERS 1,000 ML IV SCH (20:30)
[2017-03-29] MEDS: CALCIUM CARBONATE 500 MG CHEWABLE PO SCH (20:58)
[2017-03-30] MEDS: CHOLECALCIFEROL 1,000 UNIT TAB PO SCH (08:33)
[2017-03-30] MEDS: CYANOCOBALAMIN 500 MCG TAB PO SCH (08:33)
[2017-03-30] MEDS: RIVAROXABAN 15 MG TAB PO SCH (08:33)
[2017-03-30] MEDS: CALCIUM CARBONATE 500 MG CHEWABLE PO SCH ×2 (08:33→20:22)
[2017-03-30] MEDS: ACETAMINOPHEN TAB 325 MG TAB PO PRN (08:39)
--- NOTE | 2017-03-30 09:44 | US ---
EXAMINATION TYPE: US renals and bladder DATE OF EXAM: 03/30/2017 COMPARISON: CT lumbar spine March CLINICAL HISTORY: UTI and flank pain, possible obstruction or lithiasis. UTI, urinary frequency, righ t flank pain EXAM MEASUREMENTS: Right Kidney: 11.0 x 4.8 x 4.5 cm Left Kidney: 11.5 x 5.0 x 5.4 cm Right Kidney: cystic area upper pole = 2.3 x 2.2 x 2.4cm, there is increased through transmission, im perceptible wall, the lesion is anechoic Left Kidney: no evidence of hydronephrosis Bladder: diverticula noted Bilateral Jets seen: yes Cortical medullary differentiation is maintained bilaterally. Similar cyst upper pole right kidney co rresponds to CT scan findings. No hydronephrosis or ascites. No pathologic calcification evident. IMPRESSION: Simple cyst upper pole right kidney.
--- NOTE | 2017-03-30 13:04 | CONS ---
DATE OF CONSULTATION: 03/29/2017 REASON FOR CONSULTATION: Urinary tract infection, fever. HISTORY OF PRESENT ILLNESS: The patient is a 76-year-old male who has been brought into the ER at [facility] with a chief complaints of mental status changes. Apparently the patient did fall out of the bed the night before. The patient was able to go back to the bed without any injury, however, the patient was found to have more confusion, lethargy and weakness. The patient was brought into the ER for further evaluation. The patient did have a workup done in the ER including CT of the lumbosacral spine and x-ray showing no evidence of any fracture. The patient did have a fever and did have a positive UA. Chest x-ray negative for pneumonia. The patient was treated with Rocephin and Levaquin. ID was consulted for further recommendations regarding antibiotic therapy. Patient at time of admission knew that he was in the hospital. Denied significant headache. Denied any chest pain or cough. No abdominal pain. No diarrhea. REVIEW OF SYSTEMS: Positive for weakness and fever. EYES: No complaint. ENT: No complaint. RESPIRATORY: No complaint. CARDIOVASCULAR: No complaint. : As above. MUSCULOSKELETAL: No complaint. INTEGUMENTARY: No complaint. PAST MEDICAL HISTORY: History of angina, pulmonary embolism, possible Parkinson disease. PAST SURGICAL HISTORY: Pacemaker placement. SOCIAL HISTORY: Remote history of smoking. No drinking or drug use. FAMILY HISTORY: Father with history of dementia, mother with history of dementia as well. ALLERGIES: PENICILLIN but has tolerated Rocephin without any problem. MEDICATIONS: 1. Tylenol. 2. Rocephin 1 gram. 3. Vitamin D3. 4. Lactated Ringer. 5. Levofloxacin. 6. Xarelto. On examination, blood pressure is 137/72, pulse of 63, temperature 97.7, 94% on room air. GENERAL DESCRIPTION: An elderly male, lying in bed in no distress. No tachypnea or accessory muscle of respiration use. HEENT examination shows pallor. No pallor or scleral icterus. Oral mucous membranes dry. NECK: Trachea central. There is no thyromegaly. LUNGS: Unlabored breathing. Clear to auscultation anteriorly. No wheeze or crackle. HEART: S1, S2. Regular rate and rhythm. ABDOMEN: Soft. EXTREMITIES: No edema of the feet. SKIN EXAMINATION: No rash or mass palpable. NEUROLOGICAL: The patient is awake, alert, oriented x3. Mood and affect normal. LABS: Hemoglobin is 13.6, white count 13.7, white count 18.7, BUN of 23 with a creatinine 1.04. Urine has been cloudy with large leukocyte esterase. Urine culture gram negative. Blood cultures so far are negative. Chest x-ray some cardiomegaly, elevated right hemidiaphragm. DIAGNOSTIC IMPRESSION: Patient admitted to the hospital with mental status changes. The patient did have evidence of sepsis with a fever of 101. Did have an elevated white count of 18,000, meets criteria for SIRS, source is likely urinary tract infection as the patient has no other clinical focus. Chest x-ray negative. Abdomen was soft, nontender on examination. Likely gram negative in a patient with underlying urinary tract infection secondary to benign prostatic hypertrophy needs to be ruled out. PLAN: 1. Ultrasound of bladder and kidney area. 2. Rocephin 1 gram daily as gram-negative seen in urine. 3. Will follow up on his clinical condition and cultures to further adjust the medication if needed. Thank you for this consultation. Will follow this patient along with you. CHIDI
--- NOTE | 2017-03-30 13:28 | P.PN ---
Subjective Principal diagnosis: Sepsis with UTI, confusion and change in mental status, tremor, cardiac disease with pacemaker, bilateral pulmonary embolism, rash and petechiae. 76-year-old male patient who is normally seen by Dr. Sibley on an outpatient basis presented to [facility] with the above chief complaint. His daughter Kerry is at the bedside and is able to provide very detailed history. She states that the night of 03/27 her father had rolled out of bed while she was at work and this was reported by the family hours caring for him. He was able to get back to bed and did not appear to be injured at the time but began complaining of pain today. Patient presented to the emergency department for evaluation. Patient's daughter states that he has had some ongoing weakness some tremor and other neurologic issues that are being up worked up by Dr. Dial extensively as an outpatient. He has had EMGs and other studies done. He is due for more studies upcoming in the near future. His daughter states that his symptoms today were different though. He was much weaker than usual in a global fashion. Patient was seen and evaluated in the emergency room. Patient had extensive studies to determine if any fractures were present. None appear to be on initial evaluation of the films. However patient was found to have a urinary tract infection with signs of septic cysts including an elevated lactate. Patient was given fluid boluses in the emergency department started on antibiotics. He is slightly confused and slow in mentation at the time of exam but is able to answer many questions appropriately. He is sitting up and slowly eating his dinner that his daughter brought for him. He states he has had some left flank pain. There is no reported fever or chills that was noted at home however temperature was 101.9 F in the emergency department upon arrival. Slightly but better today 03/30/2017 according to family and his almost close to his baseline. Objective - Vital Signs Vital signs: Vital Signs Temp 97.5 F L 03/30/17 07:00 Pulse 80 03/30/17 07:00 Resp 24 03/30/17 07:00 BP 142/82 03/30/17 07:00 Pulse Ox 96 03/30/17 08:07 Intake & Output 03/29/17 03/30/17 03/30/17 18:59 06:59 18:59 Intake Total 440 500 Output Total 450 Balance -10 500 Intake: Oral 440 500 Output: Urine 450 Stool 0 Other: Voiding Method Bedside Commode Bedside Commode Diaper Diaper # Voids 4 # Bowel Movements 1 - Constitutional General appearance: Present: cooperative, disheveled, no acute distress. Absent : average body habitus, mild distress, morbidly obese, obese, severe distress, thin - EENT Eyes: Present: normal appearance. Absent: abnormal pupil, anicteric sclerae, disc margins sharp, edentulous, EOMI, PERRLA, fundus normal, photophobia, dentition normal, poor dentition, ptosis, scleral icterus ENT: Present: hard of hearing Ears: bilateral: normal - Neck Neck: Present: normal ROM. Absent: lymphadenopathy, other, rigidity, stridor, thyromegaly Carotids: bilateral: upstroke normal Thyroid: bilateral: normal size - Respiratory Respiratory: bilateral: CTA, diminished - Cardiovascular Rhythm: regular Heart sounds: normal: S1, S2 Abnormal Heart Sounds: Present: systolic murmur - Gastrointestinal General gastrointestinal: Present: decreased bowel sounds, normal bowel sounds, soft. Absent: absent bowel sounds, distended, hepatomegaly, hyperactive bowel sounds, organomegaly, rigid, scaphoid, splenomegaly, tenderness, umbilical hernia, ventral hernia - Integumentary Integumentary: Present: normal, pale, rash. Absent: calor, cellulitis, cyanotic , decreased turgor, flushed, jaundiced, normal turgor, ulcer - Neurologic Neurologic: Present: CNII-XII intact - Musculoskeletal Musculoskeletal: Present: generalized weakness. Absent: gait normal, strength equal bilaterally, right sided weakness, left sided weakness - Psychiatric Psychiatric: Absent: A&O x's 3, appropriate affect, intact judgment & insight - Labs CBC & Chem 7: 03/29/17 07:47 03/29/17 07:47 Labs: Microbiology - Last 24 Hours (Table) 03/28/17 15:07 Urine Culture - Preliminary Urine,Voided Gram Neg Bacilli 03/28/17 16:57 Blood Culture - Preliminary Blood No Growth after 24 hours 03/28/17 13:45 Blood Culture - Preliminary Blood No Growth after 24 hours Assessment and Plan Plan: 1. Sepsis and UTI: I'll check came back positive for above 100,000 of gram- negative bacillary most likely E. coli, patient still on Levaquin and Rocephin, susceptibility will be back tomorrow and probably patient will do well with the current antibiotics. 2. Status post rollout of bed with fall without any apparent fracture, continue all safety measurement for now. 3. Confusional and encephalopathy: Most likely from the current infection treat underlying disease and patient will be probably close to his baseline mentally. 4. Tremor, undergoing evaluation with neurology for etiology of same on an outpatient basis 5. Dementia: Most likely Alzheimer type, patient is not on any medication for it currently. 6. History of bilateral pulmonary emboli on Xarelto . 7. Daughter reports undergoing workup on an outpatient basis including a 24- hour urine 8. Petechiae of abdominal folds and medial thigh , a few scattered medial calf. Most likely rash from the infection itself until the final culture is back continue with the 2 current antibiotics. 9. Leukocytosis secondary to #1 improved. 10. Mild hypocalcemia by lab, not present on admission, likely dilutional. Repeat CMP daily. 11 discharge planning: Possible going home tomorrow.
[2017-03-30] MEDS: LACTATED RINGERS 1,000 ML IV SCH (15:32)
[2017-03-30] MEDS: LEVOFLOXACIN 750MG-D5W PMX 750 MG in DEXTROSE/WATER 1 150ML.BAG IVPB SCH (18:03)
[2017-03-30 23:00] VITALS: RESP 20
[2017-03-31 07:28] VITALS: BP 146/80; PULSE 83; TEMP 97.2
[2017-03-31] MEDS: CHOLECALCIFEROL 1,000 UNIT TAB PO SCH (08:19)
[2017-03-31] MEDS: CYANOCOBALAMIN 500 MCG TAB PO SCH (08:19)
[2017-03-31] MEDS: RIVAROXABAN 15 MG TAB PO SCH (08:19)
[2017-03-31] MEDS: CALCIUM CARBONATE 500 MG CHEWABLE PO SCH (08:19)
[2017-03-31] MEDS: ACETAMINOPHEN TAB 325 MG TAB PO PRN (08:20)
[2017-03-31 08:57] LABS: ALT 30 U/L (21-72); AST 35 U/L (17-59); Alkaline Phosphatase 79 U/L (38-126); Anion Gap 9 mmol/L; Blood Urea Nitrogen 17 mg/dL (9-20); Calcium 9.2 mg/dL (8.4-10.2); Carbon Dioxide 25 mmol/L (22-30); Chloride 105 mmol/L (98-107); Glucose 115 mg/dL (74-99); Non-African American GFR(MDRD) >60 (>60 ml/min/1.73 sqM); Potassium 4.2 mmol/L (3.5-5.1); Sodium 139 mmol/L (137-145); Total Bilirubin 0.8 mg/dL (0.2-1.3); Total Protein 7.2 g/dL (6.3-8.2)
[2017-03-31 09:28] LABS: Basophils # (A) 0.1 k/uL (0-0.2); Basophils % (A) 1 %; CHCM 32.3; Eosinophils # (A) 0.1 k/uL (0-0.7); Eosinophils % (A) 1 %; HCT 50.2 % (39.0-53.0); HDW 2.21; HGB 15.9 gm/dL (13.0-17.5); Luc # (Auto) 0.18; Luc % (Auto) 2; Lymphocytes # (A) 1.3 k/uL (1.0-4.8); Lymphocytes % (A) 11 %; MCH 30.5 pg (25.0-35.0); MCHC 31.6 g/dL (31.0-37.0); MCV 96.5 fL (80.0-100.0); Mean Platelet Volume 7.3; Monocytes % (A) 9 %; Neutrophils # (A) 9.1 k/uL (1.3-7.7); Neutrophils % (A) 77 %; RBC 5.21 m/uL (4.30-5.90); RDW 12.8 % (11.5-15.5); WBC 11.9 k/uL (3.8-10.6); WBC (Perox) 11.78
--- NOTE | 2017-03-31 10:24 | PN ---
DATE OF SERVICE: 03/30/2017 REASON FOR FOLLOWUP: Urinary tract infection. INTERVAL HISTORY: The patient is afebrile. He is currently breathing comfortably. Denies significant chest pain or cough. No abdominal pain or worsening urinary symptoms. On examination, blood pressure 133/73 with a pulse of 86, temperature 97.4. He is 95% on room air. General description is an elderly male, up in the room in no distress. RESPIRATORY SYSTEM: Unlabored breathing. Clear to auscultation anteriorly. HEART: S1, S2. Regular rate and rhythm. ABDOMEN: Soft, nontender. LABS: Hemoglobin is 13.7 as of yesterday, not repeated today. Urine showing gram-negative. Blood culture so far negative. Patient did have renal ultrasound: Simple cyst, upper pole, right kidney. DIAGNOSTIC IMPRESSION AND PLAN: Patient admitted to the hospital with a fever and mental status changes likely secondary to enteric gram-negative urinary tract infection. Patient responded to the Rocephin. That will be continued, adjusting it further based on the culture report. Continue supportive care.
[2017-03-31] MEDS: LACTATED RINGERS 1,000 ML IV SCH (11:59)
--- NOTE | 2017-03-31 16:37 | PN ---
DATE OF SERVICE: 03/31/2017 Reason for follow-up is Escherichia coli urinary tract infection. INTERVAL HISTORY: The patient is afebrile. He is feeling better, breathing comfortably. Complaining of some pain in the right flank area. He denies any chest pain or shortness of breath or cough. On examination, blood pressure is 146/80 with a pulse of 83, temperature 97.2. He is 97% on room air. General description is an elderly male, up in the chair in no distress. RESPIRATORY SYSTEM: Unlabored breathing. Clear to auscultation anteriorly. HEART: S1, S2. Regular rate and rhythm. ABDOMEN: Soft, no tenderness. LABS: White count 11.9 with a BUN of 17, creatinine 1.17. Urine with an E. coli. DIAGNOSTIC IMPRESSION AND PLAN: Patient with an Escherichia coli urinary tract infection. The patient did show overall clinical improvement. Plan at this time to finish therapy with p.o. Ceftin for another 10 days with outpatient follow-up. Continue supportive care.
--- NOTE | 2017-04-04 11:47 | P.DS ---
Providers Date of admission: 03/28/17 16:04 Expected date of discharge: 03/31/17 Attending physician: Brown Ocasio Consults: 03/28/17 16:03 Consult Physician Urgent Consulting Provider: Brown Langston Reason/Comments: Severe sepsis Do you want consulting provider notified?: Yes Primary care physician: Tre Bailey Miriam Hospital Course: 76-year-old male patient who is normally seen by Dr. Sibley on an outpatient basis presented to [facility] with the above chief complaint. His daughter Kerry is at the bedside and is able to provide very detailed history. She states that the night of 03/27 her father had rolled out of bed while she was at work and this was reported by the family hours caring for him. He was able to get back to bed and did not appear to be injured at the time but began complaining of pain today. Patient presented to the emergency department for evaluation. Patient's daughter states that he has had some ongoing weakness some tremor and other neurologic issues that are being up worked up by Dr. Dial extensively as an outpatient. He has had EMGs and other studies done. He is due for more studies upcoming in the near future. His daughter states that his symptoms today were different though. He was much weaker than usual in a global fashion. Patient was seen and evaluated in the emergency room. Patient had extensive studies to determine if any fractures were present. None appear to be on initial evaluation of the films. However patient was found to have a urinary tract infection with signs of septic cysts including an elevated lactate. Patient was given fluid boluses in the emergency department started on antibiotics. He is slightly confused and slow in mentation at the time of exam but is able to answer many questions appropriately. He is sitting up and slowly eating his dinner that his daughter brought for him. He states he has had some left flank pain. There is no reported fever or chills that was noted at home however temperature was 101.9 F in the emergency department upon arrival. Slightly but better today 03/30/2017 according to family and his almost close to his baseline. 03/31: Urine culture was positive for E. coli for which patient was discharged on Ceftin or [address] Joseph's recommendations. Discharge diagnoses: 1. Sepsis and UTI 2. Status post rollout of bed with fall without any apparent fracture, continue all safety measurement for now. 3. Metabolic encephalopathy 4. Tremor, undergoing evaluation with neurology for etiology of same on an outpatient basis 5. Dementia: Most likely Alzheimer type 6. History of bilateral pulmonary emboli on Xarelto . 7. Daughter reports undergoing workup on an outpatient basis including a 24- hour urine 8. Petechiae of abdominal folds and medial thigh , a few scattered medial calf. Most likely rash from the infection itself 9. Leukocytosis secondary to #1 improved. 10. Mild hypocalcemia by lab, not present on admission, likely dilutional. Discharge plan: Return home Impression and plan of care have been directed as dictated by the signing physician. Cassandra Weller nurse practitioner acting as scribe for signing physician. Cc: Dr. Tre Daly Patient Condition at Discharge: Good Plan - Discharge Summary New Discharge Prescriptions: New Cefuroxime [Ceftin] 250 mg PO BID #22 tablet Continue Rivaroxaban [Xarelto] 15 mg PO DAILY Cyanocobalamin [Vitamin B-12] 500 mcg PO DAILY Cholecalciferol [Vitamin D3] 1,000 unit PO DAILY Discharge Medication List Cholecalciferol [Vitamin D3] 1,000 unit PO DAILY 03/28/17 [History] Cyanocobalamin [Vitamin B-12] 500 mcg PO DAILY 03/28/17 [History] Rivaroxaban [Xarelto] 15 mg PO DAILY 03/28/17 [History] Cefuroxime [Ceftin] 250 mg PO BID #22 tablet 03/31/17 [Rx] Follow up Appointment(s)/Referral(s): [facility], [NON-STAFF] - Tre Daly MD [Primary Care Provider] - 1 Week Vanita Joseph MD [STAFF PHYSICIAN] - 1 Week Activity/Diet/Wound Care/Special Instructions: TYLENOL NEEDED FOR PAIN. INCREASE ORAL LIQUID INTAKE. Discharge Disposition: HOME WITH HOME HEALTH SERVICES
== END 2017-03-31 13:15 | disposition home health service (06) | DRG 871 ==
LOC: EC 13:05 → 4MS4W 16:04
PROVIDERS: ADMIT Internal Medicine Geriatric Medicine; ATTEND Internal Medicine Geriatric Medicine
DX: A41.9 Sepsis, unspecified organism (principal); G93.49 Other encephalopathy; E83.51 Hypocalcemia; N28.1 Cyst of kidney, acquired; N39.0 Urinary tract infection, site not specified; G30.9 Alzheimer's disease, unspecified; F02.80 Dementia in other diseases classified elsewhere, unspecified severity, without behavioral disturbance, psychotic disturbance, mood disturbance, and anxiety; B96.20 Unspecified Escherichia coli [E. coli] as the cause of diseases classified elsewhere; R25.1 Tremor, unspecified; R10.9 Unspecified abdominal pain; R00.0 Tachycardia, unspecified; M51.36 Other intervertebral disc degeneration, lumbar region; J98.6 Disorders of diaphragm; I51.7 Cardiomegaly; R21 Rash and other nonspecific skin eruption; R23.3 Spontaneous ecchymoses; H26.9 Unspecified cataract; R29.709 NIHSS score 9; R53.1 Weakness; Z79.01 Long term (current) use of anticoagulants; Z86.711 Personal history of pulmonary embolism; Z95.0 Presence of cardiac pacemaker; Z81.8 Family history of other mental and behavioral disorders; Z87.891 Personal history of nicotine dependence; Z88.0 Allergy status to penicillin; Z79.899 Other long term (current) drug therapy; W06.XXXA Fall from bed, initial encounter
CPT/HCPCS: 36415; 70450; 71020; 72132; 74000; 76770; 80048; 80053; 81001; 82550; 82553; 83605; 83735; 84484; 85025; 85610; 85730; 87040; 87077; 87086; 87186; 93005; 94760; 96361; 96365; 99291

== ENCOUNTER → 2017-04-07 | Outpatient (CLI) | payer MEDICARE ==
--- NOTE | 2017-04-08 07:55 | NM ---
EXAMINATION TYPE: NM DatScan Brain SPECT DATE OF EXAM: 04/07/2017 COMPARISON: NONE HISTORY: Transient global amnesia and abnormal involuntary movements TECHNIQUE: 10 drops of Lugol's solution was administered 1 hour prior to injection as a thyroid bloc yani agent. After the administration of 4.39 mCi I-123 Ioflupane DaTscan. Images obtained 3 hours p ost injection. SPECT images of the brain were acquired with axial and coronal reconstructions. FINDINGS: There is loss of the normal, shape of the left striatum. There is global decrease in activi ty in the right stratum which maintains its normal comma shape. This indicates a loss of prestenotic dopaminergic terminals. These findings are supportive of a clinical diagnosis of either idiopathic Pa rkinson's disease or Parkinson's syndrome. IMPRESSION: UNILATERAL REDUCTION IN THE UPTAKE IN THE LEFT STRIATED WITH MINOR REDUCTION ON THE RIGHT. THIS IS CO MPATIBLE WITH THE CLINICAL DIAGNOSIS OF EITHER IDIOPATHIC PARKINSON'S DISEASE OR PARKINSON'S SYNDROME . HOWEVER DUE TO THE MARKED ASYMMETRY AND MRI OF THE BRAIN IS SUGGESTED TO INSURE THAT THIS APPEARANC E IS NOT DUE TO A VASCULAR ETIOLOGY.
== END | disposition home or self-care (01) ==
LOC: RADNMMAIN 09:21
PROVIDERS: ATTEND Psychiatry & Neurology Neurology
DX: R25.9 Unspecified abnormal involuntary movements (principal); Z88.0 Allergy status to penicillin
CPT/HCPCS: 78607; A9584

== ENCOUNTER 2018-08-09 09:26 | Emergency (ER) | payer MEDICARE ==
[2018-08-09] MEDS ORDERED: SODIUM CHLORIDE 0.9% 500 ML IV STA (09:29)
[2018-08-09] MEDS ORDERED: SODIUM CHLORIDE 0.9% 1,000 ML IV STA (09:29)
--- NOTE | 2018-08-09 09:32 | ED ---
Altered Mental Status HPI - General Stated Complaint: altered mental status Time Seen by Provider: 08/09/18 09:26 Source: patient, family, RN notes reviewed, old records reviewed - History of Present Illness Initial Comments: This is a 77-year-old male who was brought in by EMS for evaluation for change in mental status and progressively worsening weakness. He's had a decline over last 1 and days and family was concerned he was getting septic again from a urinary tract infection. He apparently is been fighting a urinary tract infection for the past 6 months was recently on antibiotics and Flomax. Patient self denies any complaints. Per paramedics he did have some left flank pain on palpation on being picked up he denies any pain at this time. No overt fevers chills sweats he stated decreased oral intake. MD Complaint: altered mental status, decreased responsiveness - Related Data Home Medications Medication Instructions Recorded Confirmed Cyanocobalamin [Vitamin B-12] 500 mcg PO DAILY 03/28/17 08/09/18 Rivaroxaban [Xarelto] 15 mg PO DAILY 03/28/17 08/09/18 Carbidopa/Levodopa 1 tab PO TID 08/09/18 08/09/18 [Carbidopa-Levodopa 10-100 Tab] Cholecalciferol [Vitamin D3] 400 unit PO DAILY 08/09/18 08/09/18 Tamsulosin HCl [Flomax] 0.4 mg PO W/LUNCH 08/09/18 08/09/18 Previous Rx's Medication Instructions Recorded Cephalexin [Keflex] 500 mg PO Q6HR #40 cap 08/09/18 Allergies Allergy/AdvReac Type Severity Reaction Status Date / Time Penicillins Allergy Rash/Hives Verified 08/09/18 10:01 Review of Systems ROS Statement: Those systems with pertinent positive or pertinent negative responses have been documented in the HPI. ROS Other: All systems not noted in ROS Statement are negative. Past Medical History Past Medical History: Chest Pain / Angina, Pulmonary Embolus (PE) Additional Past Medical History / Comment(s): pt has weakness in legs and is being worked up for parkinsons by neurologist, Opaque Cataract in left eye scheduled for removal History of Any Multi-Drug Resistant Organisms: None Reported Past Surgical History: Pacemaker Past Anesthesia/Blood Transfusion Reactions: No Reported Reaction Type of Cardiac Device: Permanent Pacemaker Device Placement Date:: unk Past Psychological History: No Psychological Hx Reported Smoking Status: Former smoker Past Alcohol Use History: None Reported Past Drug Use History: None Reported - Past Family History Mother Family Medical History: Dementia Father Family Medical History: Dementia General Exam - General Exam Comments Initial Comments: This a well-developed well-nourished awake alert male General appearance: alert, lethargic Head exam: Present: atraumatic, normocephalic, normal inspection Eye exam: Present: normal appearance, PERRL, EOMI. Absent: scleral icterus, conjunctival injection, periorbital swelling ENT exam: Present: mucous membranes dry Neck exam: Present: normal inspection. Absent: tenderness, meningismus, lymphadenopathy Respiratory exam: Present: normal lung sounds bilaterally. Absent: respiratory distress, wheezes, rales, rhonchi, stridor Cardiovascular Exam: Present: regular rate, normal rhythm, normal heart sounds. Absent: systolic murmur, diastolic murmur, rubs, gallop, clicks GI/Abdominal exam: Present: soft, normal bowel sounds. Absent: distended, tenderness, guarding, rebound, rigid Extremities exam: Present: normal inspection, full ROM, normal capillary refill. Absent: tenderness, pedal edema, joint swelling, calf tenderness Back exam: Present: normal inspection Neurological exam: Present: alert, oriented X3, CN II-XII intact Psychiatric exam: Present: normal affect, normal mood Skin exam: Present: warm, dry, intact, normal color. Absent: rash Course Vital Signs 08/09/18 08/09/18 08/09/18 09:27 10:37 12:03 Temperature 98.5 F Pulse Rate 87 81 84 Respiratory 16 18 18 Rate Blood Pressure 157/83 134/70 175/92 O2 Sat by Pulse 95 97 96 Oximetry Medical Decision Making - Medical Decision Making Patient initially improved after IV hydration I had a long discussion with him and his daughter regarding the findings he does have some evidence of early UTI after discussion the decided they would like to go home and try outpatient therapy. He'll get a dose Rocephin prior to discharge. - Lab Data Result diagrams: 08/09/18 09:35 08/09/18 09:35 Lab Results 08/09/18 08/09/18 08/09/18 Range/Units 09:35 09:35 09:35 WBC (3.8-10.6) k/uL RBC (4.30-5.90) m/uL Hgb (13.0-17.5) gm/dL Hct (39.0-53.0) % MCV (80.0-100.0) fL MCH (25.0-35.0) pg MCHC (31.0-37.0) g/dL RDW (11.5-15.5) % Plt Count (150-450) k/uL Neutrophils % % Lymphocytes % % Monocytes % % Eosinophils % % Basophils % % Neutrophils # (1.3-7.7) k/uL Lymphocytes # (1.0-4.8) k/uL Monocytes # (0-1.0) k/uL Eosinophils # (0-0.7) k/uL Basophils # (0-0.2) k/uL Sodium 139 (137-145) mmol/L Potassium 5.0 (3.5-5.1) mmol/L Chloride 105 (98-107) mmol/L Carbon Dioxide 24 (22-30) mmol/L Anion Gap 10 mmol/L BUN 23 H (9-20) mg/dL Creatinine 1.41 H (0.66-1.25) mg/dL Est GFR (CKD-EPI)AfAm 55 (>60 ml/min/1.73 sqM) Est GFR (CKD-EPI)NonAf 47 (>60 ml/min/1.73 sqM) Glucose 93 (74-99) mg/dL Plasma Lactic Acid Otoniel (0.7-2.0) mmol/L Calcium 8.4 (8.4-10.2) mg/dL Magnesium 2.0 (1.6-2.3) mg/dL Total Bilirubin 1.3 (0.2-1.3) mg/dL AST 28 (17-59) U/L ALT 13 L (21-72) U/L Alkaline Phosphatase 66 (38-126) U/L Ammonia <9 (<30) umol/L Total Creatine Kinase 203 H (55-170) U/L CK-MB (CK-2) 3.3 H (0.0-2.4) ng/mL CK-MB (CK-2) Rel Index 1.6 Troponin I <0.012 (0.000-0.034) ng/mL Total Protein 6.9 (6.3-8.2) g/dL Albumin 3.8 (3.5-5.0) g/dL Amylase 60 (30-110) U/L Lipase 73 (23-300) U/L Urine Color Urine Appearance (Clear) Urine pH (5.0-8.0) Ur Specific Salt[place] (1.001-1.035) Urine Protein (Negative) Urine Glucose (UA) (Negative) Urine Ketones (Negative) Urine Blood (Negative) Urine Nitrite (Negative) Urine Bilirubin (Negative) Urine Urobilinogen (<2.0) mg/dL Ur Leukocyte Esterase (Negative) Urine RBC (0-5) /hpf Urine WBC (0-5) /hpf Urine WBC Clumps (None) /hpf Urine Bacteria (None) /hpf 08/09/18 08/09/18 08/09/18 Range/Units 09:35 09:35 10:15 WBC 10.8 H (3.8-10.6) k/uL RBC 4.77 (4.30-5.90) m/uL Hgb 14.4 (13.0-17.5) gm/dL Hct 42.0 (39.0-53.0) % MCV 88.1 (80.0-100.0) fL MCH 30.3 (25.0-35.0) pg MCHC 34.4 (31.0-37.0) g/dL RDW 12.4 (11.5-15.5) % Plt Count 231 (150-450) k/uL Neutrophils % 81 % Lymphocytes % 11 % Monocytes % 5 % Eosinophils % 1 % Basophils % 0 % Neutrophils # 8.8 H (1.3-7.7) k/uL Lymphocytes # 1.2 (1.0-4.8) k/uL Monocytes # 0.5 (0-1.0) k/uL Eosinophils # 0.1 (0-0.7) k/uL Basophils # 0.0 (0-0.2) k/uL Sodium (137-145) mmol/L Potassium (3.5-5.1) mmol/L Chloride (98-107) mmol/L Carbon Dioxide (22-30) mmol/L Anion Gap mmol/L BUN (9-20) mg/dL Creatinine (0.66-1.25) mg/dL Est GFR (CKD-EPI)AfAm (>60 ml/min/1.73 sqM) Est GFR (CKD-EPI)NonAf (>60 ml/min/1.73 sqM) Glucose (74-99) mg/dL Plasma Lactic Acid Otoniel 1.0 (0.7-2.0) mmol/L Calcium (8.4-10.2) mg/dL Magnesium (1.6-2.3) mg/dL Total Bilirubin (0.2-1.3) mg/dL AST (17-59) U/L ALT (21-72) U/L Alkaline Phosphatase (38-126) U/L Ammonia (<30) umol/L Total Creatine Kinase (55-170) U/L CK-MB (CK-2) (0.0-2.4) ng/mL CK-MB (CK-2) Rel Index Troponin I (0.000-0.034) ng/mL Total Protein (6.3-8.2) g/dL Albumin (3.5-5.0) g/dL Amylase (30-110) U/L Lipase (23-300) U/L Urine Color Yellow Urine Appearance Turbid (Clear) Urine pH 8.0 (5.0-8.0) Ur Specific Saltese 1.014 (1.001-1.035) Urine Protein 1+ H (Negative) Urine Glucose (UA) Negative (Negative) Urine Ketones Negative (Negative) Urine Blood Small H (Negative) Urine Nitrite Negative (Negative) Urine Bilirubin Negative (Negative) Urine Urobilinogen <2.0 (<2.0) mg/dL Ur Leukocyte Esterase Large H (Negative) Urine RBC 34 H (0-5) /hpf Urine WBC >182 H (0-5) /hpf Urine WBC Clumps Few H (None) /hpf Urine Bacteria Rare H (None) /hpf - Radiology Data Radiology results: report reviewed (Review the imaging shows no acute findings there is some evidence of low lung volumes. Please see complete report), image reviewed Disposition Clinical Impression: Dehydration, Urinary tract infection Disposition: HOME SELF-CARE Condition: Good Instructions: Urinary Tract Infection in Men (ED), Dehydration (ED) Prescriptions: Cephalexin [Keflex] 500 mg PO Q6HR #40 cap Is patient prescribed a controlled substance at d/c from ED?: No Referrals: Tre Daly MD [Primary Care Provider] - 1-2 days
[2018-08-09 09:49] LABS: Basophils % (A) 0 %; Eosinophils # (A) 0.1 k/uL (0-0.7); Eosinophils % (A) 1 %; HGB 14.4 gm/dL (13.0-17.5); Lymphocytes # (A) 1.2 k/uL (1.0-4.8); Lymphocytes % (A) 11 %; MCH 30.3 pg (25.0-35.0); MCHC 34.4 g/dL (31.0-37.0); MCV 88.1 fL (80.0-100.0); Mean Platelet Volume 6.4; Monocytes # (A) 0.5 k/uL (0-1.0); Monocytes % (A) 5 %; Neutrophils # (A) 8.8 k/uL (1.3-7.7); Neutrophils % (A) 81 %; Platelet Count 231 k/uL (150-450); RBC 4.77 m/uL (4.30-5.90); RDW 12.4 % (11.5-15.5); WBC 10.8 k/uL (3.8-10.6)
[2018-08-09 10:03] LABS: Albumin 3.8 g/dL (3.5-5.0); Calcium 8.4 mg/dL (8.4-10.2); Total Bilirubin 1.3 mg/dL (0.2-1.3); Total Protein 6.9 g/dL (6.3-8.2)
--- NOTE | 2018-08-09 10:05 | XR ---
EXAMINATION TYPE: XR chest 2V DATE OF EXAM: 08/09/2018 COMPARISON: 03/28/2017 HISTORY: Altered mental status TECHNIQUE: Frontal and lateral views of the chest are obtained. FINDINGS: There is chronic right hemidiaphragm elevation. Low lung volumes creating crowding of the pulmonary vasculature. Left basilar platelike atelectasis is seen. There is no focal air space opacit y, pleural effusion, or pneumothorax seen. The cardiac silhouette size is mildly enlarged with dual lead left-sided cardiac device. The osseous structures are intact. IMPRESSION: Minimal left basilar subsegmental atelectasis, and crowding of the pulmonary vasculature from low lung volumes. Otherwise no acute cardiopulmonary process.
[2018-08-09 10:38] VITALS: RESP 18
[2018-08-09 10:47] LABS: Creatine Kinase 203 U/L (55-170)
[2018-08-09 10:56] LABS: Appearance,Urine Turbid (Clear); Bacteria,Urine Rare /hpf; Bilirubin,Urine Negative (Negative); Blood,Urine Small (Negative); Color,Urine Yellow; Glucose,Urine (UA) Negative (Negative); Ketones,Urine Negative (Negative); Leukocyte Esterase,Urine Large (Negative); Nitrite,Urine Negative (Negative); Protein,Urine 1+ (Negative); RBC,Urine 34 /hpf (0-5); Specific Gravity,Urine 1.014 (1.001-1.035); Urobilinogen,Urine <2.0 mg/dL (<2.0); WBC,Urine >182 /hpf (0-5)
[2018-08-09 11:00] LABS: Creatine Kinase MB 3.3 ng/mL (0.0-2.4); Troponin I <0.012 ng/mL (0.000-0.034)
[2018-08-09] MEDS ORDERED: ACETAMINOPHEN TAB 500 MG TAB PO STA (13:34)
[2018-08-09 14:00] VITALS: BP 174/86; PULSE 79; TEMP 98
== END 2018-08-09 14:05 | disposition home or self-care (01) ==
LOC: EC 09:26
DX: N39.0 Urinary tract infection, site not specified (principal); E86.0 Dehydration; G20 Parkinson's disease; Z86.711 Personal history of pulmonary embolism; Z95.0 Presence of cardiac pacemaker; Z87.891 Personal history of nicotine dependence; Z79.01 Long term (current) use of anticoagulants; Z79.899 Other long term (current) drug therapy; Z88.0 Allergy status to penicillin
CPT/HCPCS: 36415; 93005; 80053; 82140; 82150; 82550; 82553; 83605; 83690; 83735; 84484; 85025; 81001; 87040; 87086; 71046; 99285; 96365; 96361 ×3; J0696